=== PATIENT | female | born 1935 | race Caucasian/White ===

== ENCOUNTER → 2019-07-09 | Day surgery (SDC) | payer MEDICARE ==
[2019-07-06 12:35] LABS: BASOPHILS # (AUTO) 0.1 (0.0-0.1); BASOPHILS % 0.4 % (0.0-1.0); EOSINOPHILS # (AUTO) 0.2 (0.0-0.4); EOSINOPHILS % 1.9 % (0.0-6.0); HEMATOCRIT 41.9 % (34.2-44.1); HEMOGLOBIN 13.3 g/dL (12.0-16.0); LYMPHOCYTES % 56.3 % (18.0-39.1); MEAN CORPUSCULAR HEMOGLOBIN 30.1 pg (28-32); MEAN CORPUSCULAR HGB CONC 31.7 g/dL (31-35); MEAN CORPUSCULAR VOLUME 94.8 fL (81-99); MONOCYTES # (AUTO) 0.9 (0.2-0.8); MONOCYTES % 7.1 % (4.4-11.3); NEUTROPHILS # (AUTO) 4.2 (2.1-6.9); NEUTROPHILS % 34.1 % (38.7-80.0); PLATELET COUNT 222 x10e3/uL (140-360); RED BLOOD COUNT 4.42 x10e6/uL (3.6-5.1); RED CELL DISTRIBUTION WIDTH 13.7 % (11.7-14.4)
[2019-07-06 12:47] LABS: ANION GAP 15.9 mmol/L (8-16); BLOOD UREA NITROGEN 13 mg/dL (7-26); BUN/CREATININE RATIO 15 (6-25); CALCIUM 9.8 mg/dL (8.4-10.2); CARBON DIOXIDE 23 mmol/L (22-29); CHLORIDE 106 mmol/L (98-107); CREATININE, SERUM 0.88 mg/dL (0.57-1.11); EST GLOMERULAR FILTRATION RATE > 60 ML/MIN (60-); GLUCOSE 89 mg/dL (74-118); POTASSIUM 3.9 mmol/L (3.5-5.1); SODIUM 141 mmol/L (136-145)
--- NOTE | 2019-07-06 13:26 | Diagnostic Imaging Report ---
EXAMINATION: CHEST 2 VIEWS INDICATION: Pre-operative COMPARISON: None FINDINGS: LINES/TUBES:None LUNGS:The lungs are hyperinflated. Mild bilateral upper lobe predominant emphysema. Biapical pleural parenchymal thickening/scarring. No focal consolidation or pulmonary edema. PLEURA:No pleural effusion or pneumothorax. MEDIASTINUM:The cardiomediastinal silhouette appears normal in size and shape. Atherosclerotic calcifications of the thoracic aorta. BONES/SOFT TISSUES:No acute osseous injury. Degenerative changes of the visualized spine. ABDOMEN:No free air under the diaphragm. IMPRESSION: No focal pneumonia or pulmonary edema. Signed by: Shirley Barrera MD on 07/06/2019 1:23 PM
[2019-07-06 14:00] LABS: EOSINOPHILS % (MANUAL) 5 % (0-7); LYMPHOCYTES % (MANUAL) 35 % (19-48); MONOCYTES % (MANUAL) 12 % (3.4-9.0); NEUTROPHILS % (MANUAL) 41 % (40-74)
[2019-07-06 14:01] LABS: ANISOCYTOSIS SLIG; ELLIPTOCYTE, RBC SLIGHT; OVALOCYTES FEW; POIKILOCYTOSIS MODERATE; RBC MORPHOLOGY COMMENT ABNORMAL
[2019-07-06 14:02] LABS: PLATELET MORPHOLOGY COMMENT NORMAL; SMUDGE CELLS FEW
[2019-07-06 14:03] LABS: BURR CELLS SLIGHT; PLATELET ESTIMATE ADEQUATE
[~2019-07-09] MED LIST: ADVAIR INH; BUPIVACAINE HCL 0.5% INJ 30 ML VIAL INJ ONE; CALCIUM PO; CEFAZOLIN SOD 1 GM/NS 50ML 100 ML IV ONE; CLONAZEPAM1 MG PO; DEXAMETHASONE SOD PHOS INJ 4 MG/ML VIAL ONE; FENTANYL CITRATE/PF 100MCG/2 ML INJ ONE; LIDOCAINE HCL 2% LOCAL INJ 5 ML SDV VIAL INJ ONE; MEPERIDINE HCL INJ 25 MG/ML VIAL ONE; NEOSTIGMINE 1 MG/ML 10ML VIAL ONE; ONDANSETRON HCL INJ 2MG/ML 2ML 2 MG/ML VIAL ONE; PROPOFOL IV EMULSION 10 MG/ML 20 ML VIAL ONE; SEVOFLURANE INHAL SOLN 250 ML PEN BTL ONE; SIMVASTATIN20 MG PO
--- OUTSIDE RECORDS SUMMARY | 2019-07-09 05:23 | XMS REPORT | Clinical Summary ---
Author Author [facility] Organization [facility] Address Unknown Phone Unavailable Care Team Providers Care Vault Person Name Role Phone Odell Araya MD PCP Allergies No Known Allergies Medications End Date Status Medication Sig Dispensed Refills Start Date Active clonAZEPAM (KlonoPIN) 0.5 Take 0.5 mg 0 02/25/201 MG tablet by mouth 7 nightly. Active omeprazole (PriLOSEC) 40 Take 40 mg by 0 01/23/201 MG capsule mouth every 7 morning. Active simvastatin (ZOCOR) 20 MG Take 20 mg by 0 tablet mouth 7 nightly. Active INCRUSE ELLIPTA 62.5 Inhale 1 puff 0 02/14/201 mcg/actuation blister every 7 with device morning. Active fluticasone-salmeterol Inhale 1 puff 0 (ADVAIR) 250-50 mcg/dose 2 (two) times DISKUS a day. Active albuterol sulfate Take 2.5 mg 0 (PROVENTIL) 2.5 mg/0.5 mL by solution for nebulization nebulization every morning. Active DOCOSAHEXANOIC ACID/EPA Take 1 0 (FISH OIL ORAL) capsule by mouth every morning. 1000MG Active CA/D3/MAG Take 2 0 OX/ZINC/RUBBER MILL OPERATOR/CAMILLA/BOR tablets by (CALCIUM 600-D3 PLUS mouth daily. ORAL) Active dexlansoprazole Take 30 mg by 0 (DEXILANT) 30 mg capsule mouth every morning. Active cefdinir (OMNICEF) 300 MG Take 300 mg 0 capsule by mouth 2 (two) times a day. PATIENT HAS 2 DOSES LEFT OF A 10 DAY THERAPY Active Problems Problem Noted Date COPD (chronic obstructive pulmonary disease) 02/24/2018 Cancer 02/24/2018 Diverticulitis of colon 02/24/2018 HCAP (healthcare-associated pneumonia) 02/23/2018 Chest pain 03/30/2017 Family History Medical History Relation Name Comments Cancer Father Cancer Sister Relation Name Status Comments Father Sister Social History Date Tobacco Use Types Packs/Day Years Used Quit: 03/30/2002 Former Smoker Cigarettes Smokeless Tobacco: Never Used Alcohol Use Drinks/Week oz/Week Comments No Sex Assigned at Date Recorded Not on file Industry Job Start Date Occupation Not on file Not on file Not on file Travel End Travel History Travel Start No recent travel history available. Last Filed Vital Signs Not on file Plan of Treatment Health Maintenance Due Date Last Done Comments SHINGLES VACCINES (#1) 1984 65+ PNEUMOCOCCAL VACCINE 1999 (1 of 2 - PCV13) INFLUENZA VACCINE 07/01/2019 Results Not on fileafter 07/08/2018 Insurance Type Payer Benefit Subscriber ID Effective Phone Address Plan / Dates Group HMO [employer] TEXANPLUS xxxxxxxxx 2017- [id number] Present Medicaid MEDICAID MEDICAID xxxxxxxxx [id number] resent Advance Directives Patient has advance care planning documents, and code status on file. For more i nformation, please contact: [employer] [address] [place] [address] Date Inactivated Comments Code Status Date Activated 03/31/2017 3:00 PM Full Code 03/30/2017 8:27 PM Code Status decision reached by: Patient
--- OUTSIDE RECORDS SUMMARY | 2019-07-09 05:23 | XMS REPORT ---
Author Author [facility] Address Unknown Phone Unavailable Care Team Providers Care Straight Slicing Machine Operator Name Role Phone MIHAELA JAEGER Unavailable Unavailable Problems This patient has no known problems. Allergies, Adverse Reactions, Alerts This patient has no known allergies or adverse reactions. Medications This patient has no known medications. Results Test Description Test Time Test Comments Text Results Atomic Results Result Comments CHEST 2 VIEWS 2019-07-06 13:22:00 [place] [address] Patient Name: RODNEY SELF MR #: [id number] : 1935 Age/Sex: 84/F Req #: [id number] Adm Physician: Ordered by: MIHAELA JAEGER DPM Report #: [id number] Location: OR Room/Bed: Procedure: [id number] DX/CHEST 2 VIEWS Exam Date: 07/06/19 Exam Time: 1254 REPORT STATUS: Signed EXAMINATION: CHEST 2 VIEWS INDICATION: Pre-operative COMPARISON: None FINDINGS: LINES/TUBES:None LUNGS:The lungs are hyperinflated. Mild bilateral upper lobe predominant emphysema. Biapical pleural parenchymal thickening/scarring. No focal consolidation or pulmonary edema. PLEURA:No pleural effusion or pneumothorax. MEDIASTINUM:The cardiomediastinal silhouette appears normal in size and shape. Atherosclerotic calcifications of the thoracic aorta. BONES/SOFT TISSUES:No acute osseous injury. Degenerative changes of the visualized spine. ABDOMEN:No free air under the diaphragm. IMPRESSION: No focal pneumonia or pulmonary edema. Signed by: Gigi Barrera MD on 07/06/2019 1:23 PM Dictated By: GIGI BARRERA MD [id number] Transcribed By: AMMON on 07/06/19 1323 COPY TO: MIHAELA JAEGER DPM
[2019-07-09 10:00] VITALS: BP 132/69
--- NOTE | 2019-07-09 16:37 | Operative Report ---
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 TITLE OF THE OPERATION: Modified Meeks bunionectomy of the right foot. ANESTHESIA: General endotracheal. HEMOSTASIS: Right thigh tourniquet, 350 mmHg. PROCEDURE IN DETAIL: The patient was taken to the operating room in a mildly sedated state, placed on the operating table in supine position. Following induction of general anesthetic, the right lower extremity was elevated to 60 degrees to exsanguinate before inflating the pneumatic tourniquet to 350 mmHg to create good hemostasis. Right lower extremity was placed on the operating table prior to performing the following procedure: Procedure #1: Modified Meeks bunionectomy at approximate 6 cm medial incision was placed with a central ellipse overlying the large lesion, overlying the most prominent medial bone. Incision was deepened via sharp and blunt dissection. The elliptical skin wedge was removed. The underlying bony hypertrophy was resected utilizing isolating saw. The joint was opened and the base of the proximal phalanx was remodeled utilizing a combination of rongeur and oscillating saw. This having been accomplished, area was irrigated with copious amounts of sterile saline solution. Deep closure with 3-0 Vicryl. Human tissue allograft was used to facilitate healing in this very compromised foot. The area was closed with a flap closure overlying the bone medially with undermining of the dorsal and plantar skin and closed with simple interrupted sutures. The areas of concern were blocked with 0.5 Marcaine. Kenalog was not used. The release of pneumatic thigh tourniquet showed a normal hyperemic flush to all digits of the right foot. The patient left the operating room with vital signs stable in apparent satisfactory condition after tolerating the anesthetic and procedure very well. DIANA Woodard/ALDAL /[id number]
== END | disposition home or self-care (01) ==
LOC: OR 05:17
PROVIDERS: ATTEND Podiatrist Foot Surgery
DX: M20.11 Hallux valgus (acquired), right foot (principal); M19.071 Primary osteoarthritis, right ankle and foot; J44.9 Chronic obstructive pulmonary disease, unspecified; I10 Essential (primary) hypertension; I49.9 Cardiac arrhythmia, unspecified; Z01.810 Encounter for preprocedural cardiovascular examination; Z01.812 Encounter for preprocedural laboratory examination; Z01.818 Encounter for other preprocedural examination; Z87.891 Personal history of nicotine dependence
CPT/HCPCS: 28292; 36415; 71046; 80048; 85025; 93005; J0690; J1100; J2001; J2175; J2405; J2704; J2710; J3010; Q4100; 76000